=== PATIENT | female | born 1965 | race Caucasian/White ===

== ENCOUNTER → 2016-04-11 | Outpatient (CLI) | payer BC | LOC: RAD 08:31 | DX: M54.2 Cervicalgia (principal); M50.123 Cervical disc disorder at C6-C7 level with radiculopathy; M50.121 Cervical disc disorder at C4-C5 level with radiculopathy; M50.11 Cervical disc disorder with radiculopathy, high cervical region; M50.122 Cervical disc disorder at C5-C6 level with radiculopathy ==